=== PATIENT | female | born 1970 | race African-American/Black ===

== ENCOUNTER 2019-11-02 19:27 | Emergency (ER) | payer OTHER ==
[~2019-11-02] VITALS: Ht 162.6 cm; Wt 149.7 kg
[2019-11-02] MEDS ORDERED: MICROZIDE12.5 MG PO (19:40)
[2019-11-02 20:45] LABS: ABSOLUTE BASOPHILS 0.1 thou/uL (0.0-0.2); ABSOLUTE EOSINOPHILS 0.1 thou/uL (0.0-0.7); ABSOLUTE LYMPHOCYTES 1.6 thou/uL (0.8-5.3); ABSOLUTE MONOCYTES 0.6 thou/uL (0.0-1.2); ABSOLUTE NEUTROPHILS 7.5 thou/uL (1.6-8.1); BASOPHILS 0.8 %; EOSINOPHILS 0.8 %; HEMATOCRIT 40.4 % (37.0-47.0); HEMOGLOBIN 13.2 gm/dL (12.0-15.0); LYMPHOCYTES 15.8 %; MCH 28.6 pg (26.0-34.0); MCHC 32.7 g/dL (28.0-37.0); MCV 87.3 fL (80.0-100.0); MONOCYTES 5.9 %; MPV 11.2 fl. (7.2-11.1); NUCLEATED RBCS 0 /100WBC; PLATELET COUNT* 142 thou/uL (150-400); POLYS 76.7 %; RBC 4.63 mil/uL (4.20-5.00); RDW-CV 15.3 % (10.5-14.5); WBC 9.8 thou/uL (4.0-11.0)
[2019-11-02 20:55] LABS: URINE BLOOD NEGATIVE (Negative); URINE CLARITY CLEAR; URINE COLOR YELLOW; URINE GLUCOSE-RANDOM NEGATIVE (Negative); URINE KETONES 1+ (Negative); URINE LEUKOCYTES-REFLEX NEGATIVE (Negative); URINE NITRITE-REFLEX NEGATIVE (Negative); URINE PROTEIN 2+ (Negative); URINE SPECIFIC GRAVITY >= 1.030 (1.005-1.030); URINE UROBILINOGEN 0.2 E.U./dl (0.2-1.0)
[2019-11-02 21:00] LABS: ICTOTEST (BILI CONFIRMATORY) Negative (Negative); URINE BILIRUBIN 1+ (Negative)
[2019-11-02 21:09] LABS: CALCIUM 8.8 mg/dL (8.5-10.1); CREATININE 1.1 mg/dL (0.6-1.3); POTASSIUM 3.6 mmol/L (3.5-5.1)
[2019-11-02 21:14] LABS: ALBUMIN 3.7 g/dL (3.4-5.0); TOTAL BILIRUBIN 0.8 mg/dL (<0.1-1.0); TOTAL PROTEIN 7.7 g/dL (6.4-8.2)
[2019-11-02 21:43] LABS: FINE GRANULAR CASTS 0-3 Few /LPF (None Seen); HYALINE CASTS 4-10 Moderate /LPF (None Seen); SQUAMOUS 4-10 Moderate /LPF (0-3)
[2019-11-02 21:44] LABS: BACTERIA-REFLEX >30 Many /HPF (None Seen); CRYSTALS None Seen /LPF (None Seen); MUCUS 4-6 Moderate strn/LPF (None Seen); URINE RBC 0-2 Rare /HPF (0-2); URINE WBC-REFLEX 0-5 Rare /HPF (0-5)
[2019-11-02] MEDS ORDERED: TYLENOL WITH CO1 TA1 PO (22:26)
[2019-11-02] MEDS ORDERED: IBUPROFEN 800800 M1 PO (22:26)
[2019-11-02] MEDS ORDERED: MACROBID 100 M100 M2 PO (22:26)
[2019-11-02] MEDS ORDERED: ONDANSETRON HCL4 M2 PO (22:26)
[2019-11-02 22:50] LABS: GIANT PLATELETS FEW; PLATELET ESTIMATE DECREASED
[2019-11-02 22:51] VITALS: BP 164/89
== END 2019-11-02 22:52 | disposition home or self-care (01) ==
LOC: M.ERS 19:27
PROVIDERS: Nurse Practitioner Family
DX: K80.20 Calculus of gallbladder without cholecystitis without obstruction (principal); N39.0 Urinary tract infection, site not specified; E27.8 Other specified disorders of adrenal gland; I10 Essential (primary) hypertension; J45.909 Unspecified asthma, uncomplicated; G47.30 Sleep apnea, unspecified; Z90.710 Acquired absence of both cervix and uterus

== ENCOUNTER 2019-11-07 18:23 | Observation (INO) | payer OTHER ==
[~2019-11-07] VITALS: Ht 162.6 cm; Wt 158.8 kg
[~2019-11-07 18:23] MED LIST: IBUPROFEN 800800 M1 PO; MACROBID 100 M100 M2 PO; MICROZIDE12.5 MG PO; ONDANSETRON HCL4 M2 PO; TYLENOL WITH CO1 TA1 PO
[2019-11-07 18:39] VITALS: BP 168/83
[2019-11-07 18:49] LABS: URINE BILIRUBIN NEGATIVE (Negative); URINE BLOOD NEGATIVE (Negative); URINE CLARITY CLEAR; URINE COLOR YELLOW; URINE GLUCOSE-RANDOM NEGATIVE (Negative); URINE KETONES NEGATIVE (Negative); URINE LEUKOCYTES-REFLEX NEGATIVE (Negative); URINE NITRITE-REFLEX NEGATIVE (Negative); URINE PROTEIN NEGATIVE (Negative); URINE UROBILINOGEN 0.2 E.U./dl (0.2-1.0)
[2019-11-07 19:10] LABS: ABSOLUTE BASOPHILS 0.1 thou/uL (0.0-0.2); ABSOLUTE EOSINOPHILS 0.1 thou/uL (0.0-0.7); ABSOLUTE LYMPHOCYTES 1.4 thou/uL (0.8-5.3); ABSOLUTE MONOCYTES 0.7 thou/uL (0.0-1.2); ABSOLUTE NEUTROPHILS 9.1 thou/uL (1.6-8.1); BASOPHILS 0.7 %; EOSINOPHILS 0.5 %; HEMATOCRIT 38.3 % (37.0-47.0); HEMOGLOBIN 12.3 gm/dL (12.0-15.0); LYMPHOCYTES 12.7 %; MCH 28.3 pg (26.0-34.0); MCHC 32.2 g/dL (28.0-37.0); MCV 87.8 fL (80.0-100.0); NUCLEATED RBCS 0 /100WBC; POLYS 80.1 %; RBC 4.36 mil/uL (4.20-5.00); WBC 11.3 thou/uL (4.0-11.0)
[2019-11-07 19:18] LABS: CALCIUM 8.6 mg/dL (8.5-10.1); CREATININE 0.8 mg/dL (0.6-1.3); POTASSIUM 3.2 mmol/L (3.5-5.1)
[2019-11-07 19:19] LABS: APTT 25.7 Seconds (25.0-31.3); INFLUENZA A ANTIGEN Negative (Negative); INFLUENZA B ANTIGEN Negative (Negative); INR 1.1; PROTIME 11.2 Seconds (9.20-11.50)
[2019-11-07 19:22] LABS: ALBUMIN 3.8 g/dL (3.4-5.0); TOTAL BILIRUBIN 1.4 mg/dL (<0.1-1.0); TOTAL PROTEIN 7.5 g/dL (6.4-8.2)
[2019-11-07 19:29] LABS: PLATELET ESTIMATE ADEQUATE
[2019-11-07 19:31] LABS: PLATELET COUNT* 133 thou/uL (150-400)
[2019-11-07 19:32] LABS: LARGE PLATELETS FEW
[2019-11-07 22:58] VITALS: BP 174/100
[2019-11-07 23:00] VITALS: BP 118/111
[2019-11-07 23:05] VITALS: BP 194/116
[2019-11-07] MEDS ORDERED: QUINAPRIL-HCTZ1 EAC1 PO (23:37)
[2019-11-07] MEDS ORDERED: FLEXERIL PO (23:37)
[2019-11-08 04:00] VITALS: BP 154/102
--- NOTE | 2019-11-08 07:38 | NUR ---
RECEIVED REPORT FROM TRANSITIONAL NURSE AT 2245. PT ARRIVED TO UNIT VIA BED AT 2300. PT AAOX4, ORIENTED TO ROOM AND CALL LIGHT. SINGER BACK TENDER IN PLACE, SR. INITIAL BP'S ELEVATED. DR. GALAN NOTIFIED AND NEW ORDERS RECEIVED. SEE EMAR FOR DOCUMENTATION. PRN PAIN MEDICATION ADMINISTERED. CALL LIGHT WITHIN REACH.
[2019-11-08 08:00] VITALS: BP 164/99
--- NOTE | 2019-11-08 08:49 | EKG ---
[place] [address] ELECTROCARDIOGRAM REPORT Name: MIHAI PAGE Room: [address] ADM IN [facility].#: [id number] Admission: 11/07/19 Attend Phys: Aron Gonzalez Discharge: Date of : 72 Report #: [id number] THIS REPORT FOR: //name// [facility] ED Test Date: 2019-11-07 Test Time: 19:07:08 Pat Name: MIHAI PAGE Department: Room: [facility] Gender: [facility] Teacher: SHARON : 1970 Requested By: Jules Chaudhari Order Number: [id number] MD: Drew Basilio Measurements Intervals [place] Rate: 89 P: 32 NH: 191 QRS: -4 QRSD: 80 T: 92 QT: 377 QTc: 459 Interpretive Statements Sinus rhythm Probable left atrial enlargement Low voltage, precordial leads Borderline T wave abnormalities Compared to ECG 06/09/2008 07:43:18 Low QRS voltage now present T-wave abnormality still present Electronically Signed On 11-08-2019 8:49:17 CHEMISTRY FACULTY MEMBER by Drew Basilio [email or web address] <ELECTRONICALLY SIGNED> By: Drew Basilio MD, FAC 11/08/19 0849 [id number] 06 Drew Basilio MD, FAC /EPI
--- NOTE | 2019-11-08 10:23 | NUR ---
ASSUMED CARE OF PT AT 0730. PT RESTING IN BED. A&0X4, DENIES ANY PAIN OR SHORTNESS OF BREATH AT THIS TIME, PT GIVEN PAIN MEDICATION BY NOC SHIFT THIS AM. PT CURRENTLY ON HOME CPAP- SAT UPPER 90'S. ON 3L NC WHEN NOT ON CPAP. TRACING SR ON THE TAX AGENT. BLOOD PRESSURE BETTER THIS AM-160'S/90'S. PT UP AD GORDON IN ROOM. PT GOAL FOR TODAY IS PAIN MGMT, RESTART HOME MEDICATIONS AND TITRATE OXYGEN. AM ASSESSMENT CHARTED. MEDICATIONS PER JAN. PT REPOSITIONS SELF. HOURLY ROUNDING OBSERVED. BED IN LOW POSITION. CALL LIGHT WITHIN REACH. WILL CONTINUE PLAN OF CARE.
[2019-11-08 12:13] VITALS: BP 160/103
--- NOTE | 2019-11-08 12:38 | NUR ---
Pt is A&O. Resides at home alone. Independent and active. Pt has a home cpap, no other DME. No hx of HH or SNF. Goal is home at tx, following.
[2019-11-08 16:11] VITALS: BP 193/112
--- NOTE | 2019-11-08 17:43 | NUR ---
NO ACUTE CHANGES THROUGHOUT SHIFT. REFER TO CHARTING. PT HAD PELVIC ULTRASOUND THIS AFTERNOON-AWAITING RESULTS AT THIS TIME. PT HAD SHOWER THIS AFTERNOON-TOLERATED WELL. CONTINUES TO BE ON 3L NC SAT UPPER 90'S AND HOME CPAP WHEN SLEEPING. UNABLE TO TITRATE OXYGEN. CONTINUES TO TRACE SR ON THE MANAGER SUPPLY CHAIN. NOT PROGRESSING TOWARDS GOALS. MEDICATIONS PER JAN. PT REPOSITIONS SELF. HOURLY ROUNDING OBSERVED. BED IN LOW POSITION. CALL LIGHT WITHIN REACH. WILL CONTINUE PLAN OF CARE.
[2019-11-08 20:00] VITALS: BP 139/74
[2019-11-09] VITALS (7 sets, daily range): BP systolic 132–169; BP diastolic 75–110
[2019-11-09 02:10] LABS: GLYCOHEMOGLOBIN (HGB A1C) 7.8 % (4.8-5.6)
--- NOTE | 2019-11-09 13:03 | NUR ---
Nutrition: Pt admitted with cholelithiasis. H/o DM, HTN, noncompliant with DM meds. Labs: BG 155, A1c 7.8%, alb 3.8. CHO controlled diet. Appears at mild nutrition risk.
[2019-11-09] MEDS ORDERED: ONDANSETRON HCL4 M2 PO (16:18)
[2019-11-09] MEDS ORDERED: TYLENOL WITH CO1 TA1 PO (16:18)
[2019-11-09] MEDS ORDERED: NORCO 5-325 TA1 EAC1 PO (16:19)
[2019-11-09] MEDS ORDERED: ATIVAN0.5 M1 PO (16:34)
[2019-11-09] MEDS ORDERED: HYDROCHLOROTHIA25 M2 PO (16:41)
--- NOTE | 2019-11-09 17:36 | NUR ---
IV AND TELE DISCONTINUED. PT UNDERSTANDS ALL FOLLOW UP ORDERS. WILL DISCHARGE TO HOME.
--- NOTE | 2019-11-13 08:28 | CON ---
[address] [address] CONSULTATION Name: MIHAI PAGE Room: [address] Claudia#: [id number] Admission: 11/07/19 Attend Phys: Aron Gonzalez Discharge: 11/09/19 Date of : 72 Report #: [id number] THIS REPORT FOR: //name// CC: Abisai Carter DATE OF SERVICE: 11/09/2019 REASON FOR CONSULTATION: Ovarian mass and mediastinal mass. SUBJECTIVE: A 49-year-old -[place]er female, who has been evaluated yesterday after she has been seen at the Emergency Room because of right lower quadrant pain and right flank pain. The patient was supposed to follow up with her JAILOR after being seen at the Emergency Room on 11/02; however, she was not able to make it. The patient denies any alleviating or exacerbating factors. She had a CT scan of the abdomen, which showed interval increase in the left adnexal mass measuring 4.5 x 5.3, possibly hemorrhagic or complex cyst. There is also a solid enhancing mass at the right adrenal gland measuring 3.0. In addition to that, the patient had a CT angiogram, which showed no evidence of PE; however, there was a large mass in the superior mediastinum measuring 5.3 x 6.5 x 7.6. Primary thyroid or bulky lymphadenopathy is a consideration. There is also extensive mediastinal lymphadenopathy and enlarged paratracheal lymph nodes noted. REVIEW OF SYSTEMS: All systems were reviewed. It was negative except the above. The patient denies any B symptoms like night sweats or fevers. PAST MEDICAL HISTORY: Hypertension, asthma, sleep apnea, and fibroid removed. PAST SURGICAL HISTORY: Hysterectomy. MEDICATIONS: As per admission list. ALLERGIES: MACROBID. FAMILY HISTORY: No family history of malignancy. PHYSICAL EXAMINATION: VITAL SIGNS: Today, temperature 37.0, pulse 88, respirations 18, blood pressure is 146/79. GENERAL: The patient was lying in bed. She was not in acute distress. LUNGS: Clear to auscultations bilaterally. HEART: Regular rate and rhythm. S1, S2 within normal limits. ABDOMEN: Soft, nontender. ASSESSMENT AND PLAN: A 49-year-old -[place] [address] CONSULTATION Name: CAMILOMIHAI A Room: [address] Claudia#: [id number] Admission: 11/07/19 Attend Phys: Aron Gonzalez Discharge: 11/09/19 Date of : 72 Report #: [id number] because of large mediastinal mass and multiple lymphadenopathies. The etiology is suspicious of active malignancy. 1. We will arrange for a biopsy by EBUS as an outpatient. 2. We will obtain a germ cell tumor markers including LDH, beta hCG, and alpha-fetoprotein. 3. Adnexal mass, which could be related to ovarian malignancy. We will obtain a FOREST FIRE EQUIPMENT OPERATOR/ONC consultation as an outpatient with Dr. Chiu. <ELECTRONICALLY SIGNED> By: Cristiano Fraire MD 11/13/19 0828 1435 [id number] Fraire MD /nt
== END 2019-11-09 16:50 | disposition home or self-care (01) ==
LOC: M.ERS 18:23 → M.TBA-ER 21:57 → M.2W 21:57
PROVIDERS: Family Medicine; Nurse Practitioner Family; ADMIT Internal Medicine
DX: N83.9 Noninflammatory disorder of ovary, fallopian tube and broad ligament, unspecified (principal); R19.09 Other intra-abdominal and pelvic swelling, mass and lump; K80.20 Calculus of gallbladder without cholecystitis without obstruction; R09.02 Hypoxemia; R10.31 Right lower quadrant pain; E07.9 Disorder of thyroid, unspecified; N39.0 Urinary tract infection, site not specified; I10 Essential (primary) hypertension; J45.909 Unspecified asthma, uncomplicated; G47.30 Sleep apnea, unspecified; Z79.899 Other long term (current) drug therapy

== ENCOUNTER → 2019-11-23 | Outpatient (CLI) | payer OTHER ==
[~2019-11-23] MED LIST changes: +ATIVAN0.5 M1 PO; +FLEXERIL PO; +HYDROCHLOROTHIA25 M2 PO; +NORCO 5-325 TA1 EAC1 PO; +QUINAPRIL-HCTZ1 EAC1 PO
--- NOTE | 2019-11-29 17:51 | HEMONC ---
[place] [address] HEMATOLOGY ONCOLOGY NOTE Name: CAMILOMIHAI Vivien Room: [facility]#: [id number] Admission: 11/23/19 Attend Phys: Cristiano Fraire MD Discharge: Date of : 72 Report #: [id number] THIS REPORT FOR: //name// CC: Abisai rFaire DATE OF SERVICE: 11/23/2019 PRIMARY CARE PHYSICIAN: Abisai Odonnell MD SUBJECTIVE: This is a 49-year-old -[place] female who was evaluated earlier two weeks ago due to abnormal findings on her CT angiogram which showed large mass at the superior mediastinum, left of the trachea, which is deviated to the right mass measuring 5.3 x 6.5 x 7.6 cm with bulky lymphadenopathy. There is also extensive mediastinal lymphadenopathy and large paratracheal. In addition to that, there is a solid right adrenal mass that could be consistent with metastatic disease. The patient stated that in 2012 she had a biopsy at [facility] and she was told it was negative. However, two weeks ago, she had a biopsy done at [facility] and the biopsy results were not available. I discussed the case with Dr. Russell Dallas, Interventional Pulmonary, at [facility] to obtain a tissue diagnosis from the mediastinal lymph nodes by EBUS; however, recommended ENT due to superior mediastinal mass. I made a referral to ENT for further evaluation. During her hospital stay, I obtained a CA-125 which came back within normal range of 20.5. Alpha fetoprotein and beta hCG and LDH came back all within normal range. Today, the patient was evaluated as a followup in the clinic. Her main concern was right hip/pelvic pain which responds to NSAIDs. REVIEW OF SYSTEMS: All systems were reviewed. It was negative except the above. PAST MEDICAL, SOCIAL, AND FAMILY HISTORY: Unchanged from last visit. MEDICATIONS: List has been reviewed. PHYSICAL EXAMINATION: VITAL SIGNS: Today, blood pressure is 137/89, pulse is 87, respirations 24, temperature is 98.1, and oxygen saturations 95% on room air. GENERAL: The patient was sitting in a chair. She was not in any respiratory distress. LUNGS: Decreased breathing sounds bilaterally; however, there was no wheezing [place] [address] HEMATOLOGY ONCOLOGY NOTE Name: CAMILOMIHAI A Room: [facility]#: [id number] Admission: 11/23/19 Attend Phys: Cristiano Fraire MD Discharge: Date of : 72 Report #: [id number] HEART: Regular rate and rhythm. S1 and S2 within normal limits. ABDOMEN: Soft, nontender, and nondistended. Bowel sounds positive. LABORATORY DATA: Labs have been reviewed. ASSESSMENT AND PLAN: This is a 49-year-old -[place] female who has been evaluated due to the followin. A 7.6 cm mass at the superior mediastinum with extensive lymphadenopathy. This raises the suspicion of metastatic disease. Urgent referral to ENT for biopsy or debulking surgery. We will obtain biopsy results from [facility]. I am not sure whether this is a thyroid biopsy, FNA, or biopsy of that mass. 2. Adnexal mass. The patient had already an appointment with Dr. Fierro Decatizer-Onc for further evaluation. <ELECTRONICALLY SIGNED> By: Cristiano Fraire MD 11/29/19 1751 0939 [id number] Fraire MD /nt
== END ==
LOC: M.RTH 09:00
DX: R59.1 Generalized enlarged lymph nodes (principal); R19.09 Other intra-abdominal and pelvic swelling, mass and lump

== ENCOUNTER → 2020-08-28 | Outpatient (CLI) | payer OTHER | LOC: M.RAD 16:18 | PROVIDERS: ATTEND Family Medicine | DX: Z12.31 Encounter for screening mammogram for malignant neoplasm of breast (principal) ==

== ENCOUNTER 2020-12-17 14:46 | Inpatient (IN) | payer OTHER ==
[~2020-12-17] VITALS: Ht 152.4 cm; Wt 154.8 kg
[2020-12-17] VITALS (19 sets, daily range): BP systolic 66–183; BP diastolic 00–112
--- NOTE | ~2020-12-17 | EEG ---
[facility] [address] [place] [address] EEG STUDY REPORT Name: MIHAI PAGE Room: [address] IN M.R.#: [id number] Admission: 12/17/20 Attend Phys: Loren Sales MD Discharge: Date of : 72 Report #: [id number] THIS REPORT FOR: cc: Abisai Odonnell MD, Bruce D. MD ~ Thomas Stone MD This patient is being evaluated for any cortical activity. EEG was done starting at 7 mV, but sensitivity was changed to 2 mV. No well-defined cortical activity was noticed. A lot of artifact was present. Photic stimulation was unremarkable. IMPRESSION AND PLAN: This patient's EEG does not demonstrate any cortical activity. However, a lot of artifact is present and it is desirable to confirm that finding with some alternate ancillary tests. Thank you very much for this referral. By: 2103 [id number] Stone MD /nt
--- NOTE | 2020-12-17 15:29 | NUR ---
PT EMERGENCY CONTACT SEVERO TREVINO [phone]
[2020-12-17 16:29] LABS: ABSOLUTE EOSINOPHILS 0.1 thou/uL (0.0-0.7); ABSOLUTE LYMPHOCYTES 2.4 thou/uL (0.8-5.3); ABSOLUTE MONOCYTES 0.4 thou/uL (0.0-1.2); ABSOLUTE NEUTROPHILS 8.6 thou/uL (1.6-8.1); BASOPHILS 0.3 %; EOSINOPHILS 0.5 %; HEMATOCRIT 39.2 % (37.0-47.0); HEMOGLOBIN 11.5 gm/dL (12.0-15.0); LYMPHOCYTES 20.9 %; MCH 27.7 pg (26.0-34.0); MCHC 29.3 g/dL (28.0-37.0); MCV 94.6 fL (80.0-100.0); MONOCYTES 3.5 %; MPV 11.1 fl. (7.2-11.1); NUCLEATED RBCS 0 /100WBC; PLATELET COUNT* 122 thou/uL (150-400); POLYS 74.8 %; RBC 4.15 mil/uL (4.20-5.00); RDW-CV 15.6 % (10.5-14.5); WBC 11.5 thou/uL (4.0-11.0)
[2020-12-17 16:41] LABS: BE -17.8 mmol/L (-2 to +3)
[2020-12-17 16:42] LABS: APTT 30.6 Seconds (25.0-31.3); INR 1.2; PROTIME 12.3 Seconds (9.20-11.50)
[2020-12-17 16:44] LABS: CALCIUM 7.9 mg/dL (8.5-10.1); CREATININE 1.6 mg/dL (0.6-1.3); POTASSIUM 4.7 mmol/L (3.5-5.1)
[2020-12-17 16:48] LABS: PCO2 75.5 mmHg (35.0-45.0); pH 6.927 (7.340-7.450)
[2020-12-17 16:51] LABS: ALBUMIN 2.6 g/dL (3.4-5.0); MAGNESIUM 2.3 mg/dL (1.8-2.4); TOTAL BILIRUBIN 0.6 mg/dL (<0.1-1.0); TOTAL PROTEIN 5.8 g/dL (6.4-8.2)
--- NOTE | 2020-12-17 18:10 | NUR ---
REPORT GIVEN TO ROYAL PLEITEZ AT 0605. TAKEN TO ICU BED 5 WITH RESPIRATORY AT BEDSIDE.
--- NOTE | 2020-12-17 18:27 | NUR ---
BEDSIDE REPORT IN ED, PT ON PRESSORS/VENTED. NO SEDATION, PUPILS FIXED AT 5MM. PT TRANSFERRED TO ICU WITH CONTINUED EEG MONITORING. CODE ICE INITIATED AT 1804, SEE VITALS TREND. PHARMACY TO BRING BAG OF INSULIN FOR DKA PROTOCOL, AWAITING MED FOR INITIATION. REPORT HAND OFF GIVEN TO MARIAH.
--- NOTE | 2020-12-17 22:00 | NUR ---
[facility]N NOTIFIED. REFERRAL # [id number]. PATIENT A CANDIDATE AT THIS TIME. THEY NEED UPDATED WITH CHANGE IN PATIENT PLAN OF CARE (IE FAMILY DISCUSSING WITHDRAWAL OF SUPPORT), PHYSICIAN WANTING TO DO BRAIN TESTING OR CHANGE IN STATUS. THEY'LL CALL DAILY. THEY ALSO NEED TO KNOW ABOUT HX OF MASSES (ARE THEY CANCEROUS), HIV AND HEPATITIS.
[2020-12-17 22:27] LABS: ALBUMIN 3.3 g/dL (3.4-5.0); CALCIUM 8.4 mg/dL (8.5-10.1); CREATININE 1.8 mg/dL (0.6-1.3); MAGNESIUM 2.2 mg/dL (1.8-2.4); PHOSPHORUS* 5.1 mg/dL (2.5-4.9)
[2020-12-17 22:29] LABS: POTASSIUM 3.6 mmol/L (3.5-5.1)
--- NOTE | 2020-12-17 23:30 | NUR ---
UPDATED SISTER ON STATUS OF PATIENT . CONSENT OBTAINED FOR ARTERIAL LINE. SISTER DENIED HX OF CANCER. STATED THAT THYROID MASS (THYROID REMOVED) AND CHEST MASS REMOVED AND WERE NOT CANCEROUS. SISTER DENIES HX OF HIV, IV DRUG USE OR HEPATITIS. [facility] UPDATED ON STATUS.
[2020-12-17 23:51] LABS: BE -9.1 mmol/L (-2 to +3)
[2020-12-17 23:56] LABS: pH 7.141 (7.340-7.450)
[2020-12-17 23:57] LABS: PO2 59.7 mmHg (75.0-100.0)
[2020-12-18] VITALS (64 sets, daily range): BP systolic 103–186; BP diastolic 64–127
[2020-12-18 00:30] LABS: CALCIUM 8.5 mg/dL (8.5-10.1); CK-MB MASS 66.4 ng/mL (<0.5-3.6); CREATININE 1.8 mg/dL (0.6-1.3); PHOSPHORUS* 4.3 mg/dL (2.5-4.9); POTASSIUM 3.2 mmol/L (3.5-5.1)
[2020-12-18 00:31] LABS: HEMATOCRIT 47.2 % (37.0-47.0); MCH 27.8 pg (26.0-34.0); MCHC 31.2 g/dL (28.0-37.0); MPV 10.5 fl. (7.2-11.1); NUCLEATED RBCS 0 /100WBC; PLATELET COUNT* 118 thou/uL (150-400); RBC 5.31 mil/uL (4.20-5.00); RDW-CV 15.1 % (10.5-14.5); WBC 25.7 thou/uL (4.0-11.0)
[2020-12-18 00:34] LABS: HEMOGLOBIN 14.7 gm/dL (12.0-15.0); MCV 88.9 fL (80.0-100.0)
[2020-12-18 00:37] LABS: FIBRINOGEN 241 mg/dL (200-340); INR 1.4; PROTIME 14.6 Seconds (9.20-11.50)
[2020-12-18 00:42] LABS: TROPONIN-I LEVEL 3.91 ng/mL (<0.06)
[2020-12-18 00:43] LABS: APTT 99.5 Seconds (25.0-31.3)
[2020-12-18 01:11] LABS: ABSOLUTE LYMPHOCYTES 3.3 thou/uL (0.8-5.3); ABSOLUTE MONOCYTES 0.5 thou/uL (0.0-1.2); ABSOLUTE NEUTROPHILS 21.8 thou/uL (1.6-8.1)
[2020-12-18 01:12] LABS: LARGE PLATELETS OCCASIONAL; PLATELET ESTIMATE ADEQUATE
[2020-12-18 02:36] LABS: ABSOLUTE BASOPHILS 0.1 thou/uL (0.0-0.2); ABSOLUTE LYMPHOCYTES 0.9 thou/uL (0.8-5.3); ABSOLUTE MONOCYTES 1.2 thou/uL (0.0-1.2); BASOPHILS 0.2 %; EOSINOPHILS 0.1 %; HEMATOCRIT 47.3 % (37.0-47.0); HEMOGLOBIN 14.5 gm/dL (12.0-15.0); LYMPHOCYTES 3.4 %; MCH 27.3 pg (26.0-34.0); MCHC 30.7 g/dL (28.0-37.0); MONOCYTES 4.6 %; MPV 10.8 fl. (7.2-11.1); NUCLEATED RBCS 0 /100WBC; PLATELET COUNT* 125 thou/uL (150-400); POLYS 91.7 %; RBC 5.32 mil/uL (4.20-5.00); RDW-CV 15.4 % (10.5-14.5); WBC 26.2 thou/uL (4.0-11.0)
[2020-12-18 02:50] LABS: ALBUMIN 3.3 g/dL (3.4-5.0); CALCIUM 7.9 mg/dL (8.5-10.1); CREATININE 1.8 mg/dL (0.6-1.3); PHOSPHORUS* 2.9 mg/dL (2.5-4.9); POTASSIUM 3.3 mmol/L (3.5-5.1)
--- NOTE | 2020-12-18 02:56 | NUR ---
1930 PT REMAINS ON ARTIC SUN AND COOLING. NO ACUTE DISTRESS AT THIS TIME. REMAINS ON VENTILATOR .
[2020-12-18 02:57] LABS: FIBRINOGEN 275 mg/dL (200-340); INR 1.4; PROTIME 14.3 Seconds (9.20-11.50)
--- NOTE | 2020-12-18 02:59 | NUR ---
2030 PT HAD EXPLOSIVE BOWEL MOVEMENT THAT WENT FROM MID BACK TO END OF BED AND INTO FLOOR. STOOL IS SEMI LIQUID. PT CLEANED AND LINENS CHANGED. FLEXISEAL INSERTED.
--- NOTE | 2020-12-18 03:01 | NUR ---
2215 STILL UNABLE TO OBTAIN A BLOOD PRESSURE, ATTEMPTED ON ALL LIMBS WITH ELECTRONIC CUFF AND TRIED MANUAL CUFF ON BOTH UPPER EXTREMITIES 2220 DR HERRERA IN ROUTE TO PLACE ART LINE 2225 DOPPLER BLOOD PRESSURE AT 66 ON RIGHT UPPER EXT 2234 BLOOD PRESSURE 108 PALPATED ON RIGHT UPPER EXTREMITY 2245 BLOOD PRESSURE 112 PALPATED ON RIGHT UPPER EXT 2355 BLOOD PRESSURE 150 PALPATED ON RIGHT UPPER EXT 0005 DR CACERES HERE AND INSERTED A 20GA CATHALON RIGHT RADIAL. CONNECTED TO ART LINE. ART LINE ZEROED.
[2020-12-18 03:04] LABS: ALBUMIN 3.3 g/dL (3.4-5.0); CK-MB MASS 69.3 ng/mL (<0.5-3.6); CREATININE 1.7 mg/dL (0.6-1.3); POTASSIUM 3.3 mmol/L (3.5-5.1); TOTAL BILIRUBIN 0.8 mg/dL (<0.1-1.0); TOTAL PROTEIN 7.2 g/dL (6.4-8.2)
--- NOTE | 2020-12-18 03:07 | NUR ---
BLOOD CULTURE OBTAINED AT 1945 AND SENT TO LAB BLOOD DRAW AT 2200 AND SENT TO LAB BLOOD DRAW AT 2305 AND SENTTO LAB BLOOD DRAW AT 0025 REDRAW PER LABS REQUEST BLOOD DRAW AT 0220 AND SENT TO LAB
[2020-12-18 03:10] LABS: TROPONIN-I LEVEL 4.45 ng/mL (<0.06)
[2020-12-18 05:08] LABS: URINE BILIRUBIN NEGATIVE (Negative); URINE BLOOD 3+ (Negative); URINE CLARITY CLEAR; URINE COLOR YELLOW; URINE GLUCOSE-RANDOM TRACE (Negative); URINE KETONES NEGATIVE (Negative); URINE LEUKOCYTES-REFLEX NEGATIVE (Negative); URINE NITRITE-REFLEX NEGATIVE (Negative); URINE PROTEIN 2+ (Negative); URINE SPECIFIC GRAVITY <= 1.005 (1.005-1.030); URINE UROBILINOGEN 0.2 E.U./dl (0.2-1.0)
[2020-12-18 05:16] LABS: AMP/METHAMP Negative (Negative); BARBITURATES Negative (Negative); BENZODIAZEPINES Negative (Negative); COCAINE Negative (Negative); METHADONE Negative (Negative); OPIATES Negative (Negative); PCP Negative (Negative); THC Negative (Negative)
[2020-12-18 05:27] LABS: BE -9.7 mmol/L (-2 to +3); PCO2 46.2 mmHg (35.0-45.0); PO2 81.1 mmHg (75.0-100.0)
[2020-12-18 05:29] LABS: pH 7.211 (7.340-7.450)
[2020-12-18 05:42] LABS: BACTERIA-REFLEX 1-9 Few /HPF (None Seen); CASTS None Seen /LPF (None Seen); CRYSTALS None Seen /LPF (None Seen); MUCUS 0-3 Light strn/LPF (None Seen); SQUAMOUS 0-3 Few /LPF (0-3); URINE RBC 3-10 Few /HPF (0-2); URINE WBC-REFLEX 0-5 Rare /HPF (0-5)
[2020-12-18 07:35] LABS: CALCIUM 7.9 mg/dL (8.5-10.1); CREATININE 2.2 mg/dL (0.6-1.3); MAGNESIUM 1.9 mg/dL (1.8-2.4); PHOSPHORUS* 3.2 mg/dL (2.5-4.9); POTASSIUM 3.2 mmol/L (3.5-5.1); TOTAL BILIRUBIN 0.7 mg/dL (<0.1-1.0); TOTAL PROTEIN 6.9 g/dL (6.4-8.2)
[2020-12-18 07:52] LABS: TROPONIN-I LEVEL 6.47 ng/mL (<0.06)
--- NOTE | 2020-12-18 13:26 | NUR ---
DKA PROTOCOL DISCONTINUED PER BUT INSULIN DRIP CONTINUED PER CONTINUOUS INSULIN INFUSION PROTOCOL. POTASSIUM BEING REPLACED PER ELECTROLYTE PROTOCOL.
--- NOTE | 2020-12-18 13:52 | NUR ---
WOUND NURSE: PATIENT IS ON CODE ICE, DOES NOT HAVE SKIN BREAKDOWN, IS MORBIDLY OBESE, IS UNCONSCIOUS. PERPRASANTH, PATIENT'S NURSE TODAY -- SHE RECOMMENDS REVISITING PATIENT TOMORROW AND EVALUATE NEED FOR SPECIALTY BED THEN. I WILL RESCHEDULE PATIENT FOR TOMORROW A RESULT.
--- NOTE | 2020-12-18 14:38 | NUR ---
ICU rounds: Cold ice. Low probability of recovery. CM left VM for Pt's emergency contact, awaiting call back.
[2020-12-18 15:10] LABS: BE -4.5 mmol/L (-2 to +3); PCO2 38.9 mmHg (35.0-45.0); PO2 62.6 mmHg (75.0-100.0); pH 7.344 (7.340-7.450)
[2020-12-18 16:25] LABS: HEMATOCRIT 43.8 % (37.0-47.0); HEMOGLOBIN 13.7 gm/dL (12.0-15.0); MCH 27.7 pg (26.0-34.0); MCHC 31.3 g/dL (28.0-37.0); MCV 88.6 fL (80.0-100.0); MPV 10.8 fl. (7.2-11.1); NUCLEATED RBCS 0 /100WBC; PLATELET COUNT* 101 thou/uL (150-400); RBC 4.94 mil/uL (4.20-5.00); RDW-CV 15.4 % (10.5-14.5); WBC 18.2 thou/uL (4.0-11.0)
[2020-12-18 16:38] LABS: APTT 46.5 Seconds (25.0-31.3); INR 1.2; PROTIME 12.9 Seconds (9.20-11.50)
--- NOTE | 2020-12-18 16:40 | 2DMMODE ---
[place] [address] 2 D/M-MODE ECHOCARDIOGRAM Name: MIHAI PAGE Room: [address] IN [facility]#: [id number] Admission: 12/17/20 Attend Phys: Loren Sales, Discharge: Date of : 72 Date of Service: 12/18/20 [facility] Report #: [id number] THIS REPORT FOR: cc: Abisai Odonnell MD, Bruce D. MD Holkins,Marky Davila MD [facility] ~ APPROVED REPORT Study performed: 12/18/2020 09:42:33 EXAM: Comprehensive 2D, Doppler, and color-flow Echocardiogram Patient Location: In-Patient Room #: 005 Status: routine BSA: 2.22 HR: 63 bpm BP: 142/105 mmHg Rhythm: NSR Other Information Study Quality: Good Indications Elevated Troponin 2D Dimensions IVSd: 12.44 (7-11mm) LVOT Diam: 20.05 (18-24mm) LVDd: 40.91 mm PWd: 11.45 (7-11mm) Ascending Ao: 28.29 (22-36mm) LVDs: 33.55 (25-40mm) Aortic Root: 30.68 mm Volumes Left Atrial Volume (Systole) LA ESV Index: 22.30 mL/m2 Aortic Valve AoV Peak Mohit.: 0.95 m/s AO Peak Gr.: 3.64 mmHg LVOT Max P.00 mmHg AO Mean Gr.: 2.25 mmHg LVOT Mean P.93 mmHg LVOT Max V: 0.71 m/s AO V2 VTI: 19.91 cm LVOT Mean V: 0.44 m/s ZOE (VTI): 2.23 cm2 LVOT V1 VTI: 14.05 [place] [address] 2 D/M-MODE ECHOCARDIOGRAM Name: MIHAI PAGE Room: [address] IN [facility]#: [id number] Admission: 12/17/20 Attend Phys: Loren Sales, Discharge: Date of : 72 Date of Service: 12/18/20 [facility] Report #: [id number] Mitral Valve E/A Ratio: 1.29 MV Decel. Time: 226.12 ms MV E Max Mohit.: 0.50 m/s MV PHT: 65.57 ms MVA (PHT): 3.35 cm2 TDI E/Lateral E': 12.50 E/Medial E': 12.50 Medial E' Mohit.: 0.04 m/s Lateral E' Mohit.: 0.04 m/s Pulmonary Valve PV Peak Mohit.: 0.59 m/s PV Peak Gr.: 1.38 mmHg Left Ventricle The left ventricle is normal size. There is mild global hypokinesis of the left ventricle. Borderline concentric left ventricular hypertrophy. Left ventricular systolic function is mildly decreased. LVEF is 45%. Right Ventricle The right ventricle is normal size. The right ventricular systolic function is normal. Atria The left atrium size is normal. The right atrium size is normal. Aortic Valve The aortic valve is normal in structure. No aortic regurgitation is present. There is no aortic valvular stenosis. Mitral Valve The mitral valve is normal in structure. There is no mitral valve regurgitation noted. No evidence of mitral valve stenosis. Tricuspid Valve The tricuspid valve is normal in structure. There is no tricuspid valve regurgitation noted. Pulmonic Valve The pulmonary valve is normal in structure. There is no pulmonic valvular regurgitation[place] [address] 2 D/M-MODE ECHOCARDIOGRAM Name: MIHAI PAGE Room: [address] IN [facility]#: [id number] Admission: 12/17/20 Attend Phys: Loren Sales, Discharge: Date of : 72 Date of Service: 12/18/20 [facility] Report #: [id number] The aortic root is normal in size. IVC is normal in size and collapses >50% with inspiration. Pericardium There is no pericardial effusion. <Conclusion> The left ventricle is normal size. Borderline concentric left ventricular hypertrophy. Left ventricular systolic function is mildly decreased. LVEF is 45%. The right ventricle is normal size. The left atrium size is normal. The aortic valve is normal in structure. The mitral valve is normal in structure. The tricuspid valve is normal in structure. IVC is normal in size and collapses >50% with inspiration. There is no pericardial effusion. There is mild global hypokinesis of the left ventricle. <ELECTRONICALLY SIGNED> By: Marky Campoverde MD, FACC 12/18/20 1640 1640 1640 Marky Campoverde MD, FACC /INF
[2020-12-18 16:51] LABS: CALCIUM 7.8 mg/dL (8.5-10.1); CK-MB MASS 89.3 ng/mL (<0.5-3.6); CREATININE 2.4 mg/dL (0.6-1.3); PHOSPHORUS* 2.6 mg/dL (2.5-4.9); POTASSIUM 4.3 mmol/L (3.5-5.1)
[2020-12-18 16:53] LABS: TROPONIN-I LEVEL 4.17 ng/mL (<0.06)
[2020-12-18 16:59] LABS: ABSOLUTE LYMPHOCYTES 0.5 thou/uL (0.8-5.3); ABSOLUTE MONOCYTES 0.4 thou/uL (0.0-1.2); ABSOLUTE NEUTROPHILS 17.3 thou/uL (1.6-8.1); PLATELET ESTIMATE DECREASED
--- NOTE | 2020-12-18 17:08 | EKG ---
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[place] : 1970 Requested By: Fransisco Terry Order Number: [id number] MD: Marky Campoverde Measurements Intervals [place] Rate: 112 P: [place]: QRS: 1 QRSD: 142 T: 33 QT: 462 QTc: 631 Interpretive Statements Sinus tachycardia Right bundle branch block Borderline ST depression, lateral leads Baseline wander in lead(s) I,II,III,aVR,aVL,aVF,V1,V2,V3,V4,V5,V6 Compared to ECG 11/07/2019 19:07:08 Sinus rate has increased Right bundle-branch block now present ST (T wave) deviation now present Electronically Signed On 12-18-2020 17:07:56 PROFESSIONAL SERVICES CONSULTANT by Marky Campoverde [email or web address] <ELECTRONICALLY SIGNED> By: Marky Campoverde MD, [facility] 12/18/20 1707 1507 1507 Marky Campoverde MD, [facility] /EPI
--- NOTE | 2020-12-18 18:21 | NUR ---
VENT SUPPORT CONTD. SETTINGS CHANGED PER ORDERS, FIO2 DOWN TO 70%. LEVOPHED TITRATED DOWN TO 3 MCG/MIN THIS SHIFT. HEPARIN DRIP AND INSULIN DRIP PER PROTOCOL. POTASSIUM REPLACED AND CORRECTED. DW WITH BICARB GTT AT 50 MLS/HR. SISTER AND MOTHER VISITED SHORTLY THIS AFTERNOON. REWARMING STARTED AT 1810.
--- NOTE | 2020-12-18 18:34 | CON ---
[address] [address] CONSULTATION Name: MIHAI PAGE Room: [address] IN [facility].#: [id number] Admission: 12/17/20 Attend Phys: Loren Sales MD Discharge: Date of : 72 Report #: [id number] THIS REPORT FOR: cc: Abisai Odonnell MD, Bruce D. MD ~ Dominik Sofia MD DATE OF SERVICE: 12/18/2020 Consult has been a requested by Dr. Sales. INDICATION FOR CONSULTATION: Acute hypoxemic respiratory failure/ventilator management. HISTORY OF PRESENT ILLNESS: A 50-year-old female who has a history of morbid obesity, body mass index is 67.1. She also carries a diagnosis of bronchial asthma. The patient does use a CPAP at home as well as oxygen in line at night. She also uses oxygen during ambulation. The patient has previously been evaluated for a mediastinal mass as well and had thyroid surgery last year at [facility]. The patient is now admitted with sudden shortness of breath. The patient was at [facility] according to her sister when she suddenly developed acute shortness of breath and was brought to the Emergency Room at this hospital via a private car. Upon arrival, the patient was found to be in cardiac arrest. The patient since then was endotracheally intubated and is currently on the ventilator. The patient is oxygenating adequately as well as ventilating adequately. She does still have a significant metabolic acidosis though. The patient, however, is on high-flow oxygen. She is bronchospastic. The patient is on the ventilator and therefore is unable to provide a further history or review of systems. PAST MEDICAL HISTORY: Morbid obesity, body mass index 67, obstructive sleep apnea, long-term oxygen use while asleep and during ambulation. Bronchial asthma, mediastinal mass, thyroid surgery. The patient's baseline creatinine from 2 years ago is 0.8. I do not have a more recent creatinine available. Hysterectomy for fibroids in 2016, diabetes and hypertension. SOCIAL HISTORY: There is a reported history of alcohol use, which is not known to me if this use is excessive or not. There is no known history of smoking or illegal drug use. FAMILY HISTORY: No pertinent family history known at this time. CURRENT MEDICATIONS: [place] [address] CONSULTATION Name: CAMILOMIHAI Vivien Room: [address]#: [id number] Admission: 12/17/20 Attend Phys: Loren Sales MD Discharge: Date of : 72 Report #: [id number] HOME MEDICATIONS: List also in [facility] reviewed. PHYSICAL EXAMINATION: GENERAL: The patient was unresponsive and not on sedation at the time of my evaluation, she is on code ICE with a temperature of 32.9. VITAL SIGNS: Pulse 64, blood pressure 151/98. She was on 70% FiO2. Ventilator settings are reviewed and documented tidal volume 550, AC rate of 14 and 70% FiO2, 7 of PEEP. She was saturating 97%. HEENT: Head is normocephalic and atraumatic. There is an endotracheal tube in good position. NECK: Does not show raised JVP symmetry mass or lymph nodes. CHEST: Symmetrical expansion on inspection and palpation. On auscultation, there are significant inspiratory as well as more expiratory wheezes bilaterally. HEART: Regular, no murmur. ABDOMEN: Mildly distended, nontender. EXTREMITIES: Lower extremities show edema, which is left greater than right. There is no calf tenderness. NEUROLOGICAL: The patient did not respond to painful stimuli at the time of my evaluation. LABORATORY DATA: The patient's chest x-rays, which do show extensive bilateral infiltrates consistent with acute pulmonary edema in [facility] reviewed. CT head in [facility] reviewed. CT chest films as well as report are reviewed. The patient's lab work is in [facility] and is reviewed. Arterial blood gases in [facility] reviewed. COVID-19 antigen was negative. ASSESSMENT AND PLAN: 1. Cardiac arrest/anoxic encephalopathy, due to the patient's sudden presentation it appears the patient had a cardiac event. Unfortunately, there appears to be significant anoxic brain injury. Neurology service is on the case. The patient is on code ICE. 2. Acute hypoxemic/hypercarbic respiratory failure. I adjusted the ventilator. Repeat labs are ordered. She does have a metabolic acidosis as well. We will defer this to the Nephrology service. 3. Bronchial asthma exacerbation/bronchospasm. Agree with increasing steroids. I also increased her nebulized bronchodilators if needed as a result, then give her more insulin. 4. Pulmonary infiltrates, primarily this appears to be secondary to acute pulmonary edema. Considering the severity of her illness I did broaden her ceftriaxone to cefepime. Note that the patient also is on vancomycin for a positive blood culture. 5. Acute renal failure. Note that the patient's creatinine from [address] [place] [address] CONSULTATION Name: MIHAI PAGE Room: [address] IN .R.#: [id number] Admission: 12/17/20 Attend Phys: Loren Sales MD Discharge: Date of : 72 Report #: [id number] was 0.8 and I do not have a more recent creatinine before this admission available. She also has a metabolic acidosis. The Nephrology service is managing. 6. Edema of lower extremities. This is asymmetrical and therefore, I will do venous Dopplers. 7. Morbid obesity with obstructive sleep apnea. See discussion as above. 8. Elevated troponin I/possible myocardial infarction. Cardiology service is on the case. We will await echo. 9. Gastrointestinal prophylaxis. The patient is on Pepcid. 10. Previous history of superior mediastinal mass. This is not clearly visualized on the new CT. I can certainly discuss with radiologist and compare with the patient's previous CT, however other issues take priority at this time. The patient is critically ill at this time. Total time spent providing critical care to this patient today is 42 minutes. <ELECTRONICALLY SIGNED> By: Dominik Sofia MD 12/18/20 1834 1320 1413Achuck Sofia MD /nt
[2020-12-18 20:37] LABS: BE -4.7 mmol/L (-2 to +3); PCO2 33.6 mmHg (35.0-45.0); PO2 69.4 mmHg (75.0-100.0); pH 7.381 (7.340-7.450)
[2020-12-19] VITALS (64 sets, daily range): BP systolic 97–140; BP diastolic 40–94
[2020-12-19 05:34] LABS: BE -5.8 mmol/L (-2 to +3); PCO2 30.9 mmHg (35.0-45.0); PO2 84.5 mmHg (75.0-100.0); pH 7.385 (7.340-7.450)
[2020-12-19 07:04] LABS: ABSOLUTE LYMPHOCYTES 0.6 thou/uL (0.8-5.3); ABSOLUTE MONOCYTES 0.6 thou/uL (0.0-1.2); ABSOLUTE NEUTROPHILS 19.4 thou/uL (1.6-8.1); BASOPHILS 0.1 %; HEMATOCRIT 39.5 % (37.0-47.0); HEMOGLOBIN 12.5 gm/dL (12.0-15.0); LYMPHOCYTES 2.7 %; MCH 27.5 pg (26.0-34.0); MCHC 31.6 g/dL (28.0-37.0); MCV 86.8 fL (80.0-100.0); MPV 10.8 fl. (7.2-11.1); NUCLEATED RBCS 0 /100WBC; PLATELET COUNT* 90 thou/uL (150-400); POLYS 94.2 %; RBC 4.55 mil/uL (4.20-5.00); RDW-CV 15.8 % (10.5-14.5); WBC 20.6 thou/uL (4.0-11.0)
[2020-12-19 07:33] LABS: ALBUMIN 2.7 g/dL (3.4-5.0); CALCIUM 7.6 mg/dL (8.5-10.1); CREATININE 3.1 mg/dL (0.6-1.3); MAGNESIUM 1.8 mg/dL (1.8-2.4); TOTAL BILIRUBIN 0.5 mg/dL (<0.1-1.0); TOTAL PROTEIN 6.5 g/dL (6.4-8.2)
[2020-12-19 07:35] LABS: TROPONIN-I LEVEL 4.24 ng/mL (<0.06)
[2020-12-19 14:09] LABS: HEPATITIS B SURFACE AG Negative (Negative)
--- NOTE | 2020-12-19 14:53 | NUR ---
ICU rounds: Pt having an EEG now, mother and sister aware of prognosis. Neuro following. Pt to have a brain flow study tomorrow. MTN following.
--- NOTE | 2020-12-19 16:26 | NUR ---
WOUND NURSE: REVISITED PATIENT AND HER NURSE, PRASANTH REGARDING POTENTIAL NEED FOR A SPECIALTY BED, AND PRASANTH REPORTS NOT AT THIS TIME. EXPLAINED TO LET ME KNOW IF THIS CHANGES AND ONE IS LATER NEEDED.
[2020-12-19 18:48] LABS: ABSOLUTE LYMPHOCYTES 0.6 thou/uL (0.8-5.3); ABSOLUTE MONOCYTES 0.7 thou/uL (0.0-1.2); BASOPHILS 0.1 %; HEMATOCRIT 36.4 % (37.0-47.0); HEMOGLOBIN 11.4 gm/dL (12.0-15.0); LYMPHOCYTES 3.5 %; MCH 27.5 pg (26.0-34.0); MCHC 31.2 g/dL (28.0-37.0); MCV 88.1 fL (80.0-100.0); MONOCYTES 3.7 %; MPV 11.9 fl. (7.2-11.1); NUCLEATED RBCS 0 /100WBC; PLATELET COUNT* 78 thou/uL (150-400); POLYS 92.7 %; RBC 4.13 mil/uL (4.20-5.00); RDW-CV 15.6 % (10.5-14.5); WBC 18.4 thou/uL (4.0-11.0)
[2020-12-19 19:04] LABS: APTT 25.7 Seconds (25.0-31.3); INR 1.1; PROTIME 11.9 Seconds (9.20-11.50)
[2020-12-19 19:14] LABS: CALCIUM 7.5 mg/dL (8.5-10.1); CK-MB MASS 19.7 ng/mL (<0.5-3.6); MAGNESIUM 1.9 mg/dL (1.8-2.4); PHOSPHORUS* 5.1 mg/dL (2.5-4.9)
[2020-12-19 19:30] LABS: CREATININE 4.3 mg/dL (0.6-1.3)
[2020-12-19 19:33] LABS: TROPONIN-I LEVEL 3.31 ng/mL (<0.06)
--- NOTE | 2020-12-19 19:39 | NUR ---
INSULIN GTT DC'd THIS AM. VENT SUPP CONTD, FIO2 DOWN TO 40%, PEEP TO 5. EEG DONE TODAY. PLAN FOR BRAIN FLOW STUDY TOMMOROW PER DR PISANO. MTN UPDATED. PERSISTENT BLEEDING FROM ORAL CAVITY, INCREASING IN AMOUNT AT THE END OF SHIFT, PROVIDER NOTIFIED, ORDERS FOR EPINEPHRIINE PACKING RECEIVED. REPORT GIVEN TO BEATER AND PULPER FEEDER RN.
[2020-12-20] VITALS (38 sets, daily range): BP systolic 94–151; BP diastolic 53–84
[2020-12-20 05:17] LABS: ABSOLUTE LYMPHOCYTES 0.4 thou/uL (0.8-5.3); ABSOLUTE MONOCYTES 0.9 thou/uL (0.0-1.2); ABSOLUTE NEUTROPHILS 18.8 thou/uL (1.6-8.1); BASOPHILS 0.2 %; HEMATOCRIT 36.3 % (37.0-47.0); HEMOGLOBIN 11.3 gm/dL (12.0-15.0); LYMPHOCYTES 2.2 %; MCH 27.2 pg (26.0-34.0); MCHC 31.3 g/dL (28.0-37.0); MCV 87.1 fL (80.0-100.0); MONOCYTES 4.3 %; MPV 11.7 fl. (7.2-11.1); NUCLEATED RBCS 0 /100WBC; PLATELET COUNT* 74 thou/uL (150-400); POLYS 93.3 %; RBC 4.17 mil/uL (4.20-5.00); RDW-CV 15.5 % (10.5-14.5); WBC 20.1 thou/uL (4.0-11.0)
[2020-12-20 05:42] LABS: ALBUMIN 2.6 g/dL (3.4-5.0); CALCIUM 8.2 mg/dL (8.5-10.1); CREATININE 5.1 mg/dL (0.6-1.3); PHOSPHORUS* 4.9 mg/dL (2.5-4.9); POTASSIUM 4.6 mmol/L (3.5-5.1); TOTAL BILIRUBIN 0.7 mg/dL (<0.1-1.0); TOTAL PROTEIN 6.7 g/dL (6.4-8.2)
[2020-12-20 05:52] LABS: TROPONIN-I LEVEL 3.35 ng/mL (<0.06)
--- NOTE | 2020-12-20 07:19 | NUR ---
ASSUMED PATIENT CARE AT 1900. ASSESSMENTS COMPLETED CHARTED. CARDIAC MONITORING IN PLACE. BED LOCKED AND IN LOWEST POSITION. HOURLY ROUNDING IN PLACE FOR PATIENT SAFETY.
[2020-12-20 08:57] LABS: BE -4.2 mmol/L (-2 to +3); PO2 79.4 mmHg (75.0-100.0)
--- NOTE | 2020-12-20 09:02 | CON ---
[address] [address] CONSULTATION Name: MIHAI PAGE Room: [address] IN ..#: [id number] Admission: 12/17/20 Attend Phys: Loren Sales MD Discharge: Date of : 72 Report #: [id number] THIS REPORT FOR: cc: Abisai Odonnell MD, Bruce D. MD ~ Karla Rm MD DATE OF SERVICE: 12/18/2020 NEPHROLOGY CONSULTATION CONSULTING PHYSICIAN: Dr. Sales. REASON FOR NEPHROLOGY CONSULTATION: Acute kidney injury, status post cardiac arrest. REASON FOR ADMISSION: Cardiac and respiratory arrest. HISTORY OF PRESENT ILLNESS: The patient is a 50-year-old female who has history of hypothyroidism, obesity, obstructive sleep apnea and diabetes type 2, who initially developed progressive shortness of air at home, went out to the store to grab something, but became extremely short of breath, came back to her car and EMS had to bring her to the ER. En route and actually in the parking lot, she coded. She was transferred to the Emergency Room, resuscitated and coded 2 times after that, before return of spontaneous circulation about 50 minutes, had . She was immediately placed on hypothermia protocol. There was no STEMI noticed. Her creatinine was 1.6 when she came in, which has gone up to 2.2. She is nonoliguric. She has made about 1350 mL of urine since she has been here. She also has evidence of diffuse cerebral edema on her brain CT, evidence of bilateral pneumonia which looks more like pulmonary edema to me. She also has evidence of transaminitis, which has been getting better. Her troponin has gone up from 0.09 to 6.47. Cardiology is involved. Prognosis seems to be very poor. She also has evidence of significant respiratory as well as metabolic acidosis and has been started on a bicarbonate drip this morning. Lactate is at 3.1. White count has gone from 12,000 to 26,000. One of the blood culture bottles are growing gram-positive cocci. The patient is currently unresponsive with fixed dilated pupils, no reflex, on 1 vasopressor, Levophed. ALLERGIES: NITROFURANTOIN. REVIEW OF SYSTEMS: Due to unresponsiveness, I could not obtain. HOME MEDICATIONS: Include ibuprofen, quinapril, hydrochlorothiazide. She is on Zofran. She is on Tylenol with Codeine, [place] [address] CONSULTATION Name: MIHAI PAGE Vivien Room: [address] IN [facility]#: [id number] Admission: 12/17/20 Attend Phys: Loren Sales MD Discharge: Date of : 72 Report #: [id number] PAST MEDICAL AND SURGICAL HISTORY: Includes hypertension, morbid obesity, asthma, sleep apnea, fibroids removed, hysterectomy in 2015 and diabetes type 2. FAMILY HISTORY: Not able to obtain from the patient. SOCIAL HISTORY: According to the chart, she does not smoke and she does use alcohol, no recreational drug use. She lives at home. PHYSICAL EXAMINATION: VITAL SIGNS: Blood pressure currently is 153/99, temperature was 33 degrees Celsius, pulse rate was 63, respiratory rate was 14 and pulse ox is 97%, she is on 100% FiO2 on the ventilator. GENERAL: The patient is actually currently intubated. She is unresponsive with fixed dilated pupils. HEAD AND EYES: Fixed dilated pupils. Head is atraumatic. The patient is morbidly obese. EARS, NOSE, AND THROAT: Normal ears and nose. She has ET tube in place. NECK: Difficult to assess because of obesity. CHEST: Bilaterally diminished breath sounds. She is on ventilation, so mechanically ventilated breath sounds. CARDIOVASCULAR: S1, S2 normal, limited because of obesity. ABDOMEN: Soft. It is obese and it is nondistended. EXTREMITIES: There is no edema. NEUROLOGICAL FUNCTION: She is currently unresponsive. PSYCHIATRIC: Not able to assess right now. LABORATORY DATA: Her WBC is 26.2, hemoglobin is 14.5 and platelet count is 125. Sodium is 147, potassium is 3.2, CO2 is 27 and creatinine is 2.2, which is up from 1.8, which is up from 1.6 when she came in. Her pH is 7.2 and pCO2 of 46. CPK was 334 and troponin 6.47. D-dimer more than 35. PTT 62. Other labs were reviewed. IMAGING: Chest x-ray and head and chest CT were reviewed. ASSESSMENT: 1. Acute kidney injury, likely ischemic acute tubular necrosis in the setting of multiple cardiac arrests x 3. She was also taking NSAIDs and quinapril, hydrochlorothiazide at home, which also contributed to acute kidney injury. She is nonoliguric. Renal imaging will be checked. Her blood pressure was 66/27 when she came in and of course she coded 3 times. 2. Multiple cardiac arrests. Prognosis seems to be poor. She has evidence of anoxic brain injury, Cardiology is following. She is currently on hypothermia protocol. 3. Shock, likely cardiogenic at this point, ejection fraction is pending, [place] [address] CONSULTATION Name: MIHAI PAGE Room: [address] IN [facility]#: [id number] Admission: 12/17/20 Attend Phys: Loren Sales MD Discharge: Date of : 72 Report #: [id number] has gram-positive cocci growing from one of the blood culture bottles and is going to get vancomycin for that. 4. Combined respiratory metabolic acidosis with some metabolic alkalosis as well, has been started on a bicarbonate drip as per primary team. Most recent pH is 7.2. 5. Hypokalemia, likely because of hypothermia. 6. Hyponatremia, sodium is 147. 7. Transaminitis, likely due to decreased perfusion, enzymes are coming down. 8. Acute respiratory failure, intubated because of cardiorespiratory arrest, seems like pulmonary edema to me. 9. Diabetes type 2 history and she presented with diabetic ketoacidosis and treated with diabetic ketoacidosis protocol, on insulin drip currently. 10. Elevated TSH with normal free T4 with history of hypothyroidism. We will defer to primary team for management. 11. The patient has sleep apnea, we will defer to primary team. PLAN: 1. Replace potassium as per hypothermia protocol. 2. Sodium slightly high at 147, we will follow. 3. Agree with low dose bicarbonate drip. 4. Prognosis seems to be very poor and currently she is making urine, but if she stops making urine she will really not be a candidate for dialysis because of anoxic brain injury and completely unresponsive state. 5. Try to keep her MAP around 65-70. 6. I will check a renal ultrasound for completion purposes. 7. UA was reviewed, it had 3-10 rbc's per high powered field with 2+ protein. 8. Her baseline creatinine was 0.8 in 2019. We will continue to follow with you, I spent 38 minutes in the patient's critical care, this time was spent in chart review, placing orders and care coordination discussed with the patient's nurse in detail. <ELECTRONICALLY SIGNED> By: Karla Rm MD 12/20/20 0902 0957 1026Ashaun Rm MD /nt
--- NOTE | 2020-12-20 14:01 | NUR ---
ICU rounds: Neuro doing brain studies. MTN following
[2020-12-20 14:13] LABS: URINE CALCIUM < 3 mg/24 hr (47-462); URINE CALCIUM-mg/dl < 0.8 mg/dL (Not Estab.)
--- NOTE | 2020-12-20 14:57 | CON ---
[address] [address] CONSULTATION Name: CAMILOMIHAI FRANKS Vivien Room: [address] IN .R.#: [id number] Admission: 12/17/20 Attend Phys: Loren Sales MD Discharge: Date of : 72 Report #: [id number] THIS REPORT FOR: cc: Abisai Odonnell MD, Bruce D. MD ~ Thomas Stone MD DATE OF SERVICE: 12/19/2020 HISTORY OF PRESENT ILLNESS: This is a 50-year-old female patient who is unable to provide any history because she is intubated and she is on vent, and she is unresponsive. Her sister is here, she provided some history and I talked to the nurses and reviewed the patient's records and got more history from there. Neurological consultation is being requested to prognosticate the patient. The patient was found in cardiac arrest and she was resuscitated and since then she is unresponsive. According to nurses, she is not on any sedation. It looks like she has developed shortness of breath and was subsequently coded, she was put on hypothermia protocol. She has been warmed up since then. This patient's CT scan was done on admission and even that CT scan is showing pretty profound brain edema. She has been seen by multiple physicians when she is here that include Pulmonology and Nephrology. Those records were reviewed. It looks like this patient's ejection fraction was slightly decreased. REVIEW OF SYSTEMS: A 14-point review of system was carried out, the best it could be carried out. The patient is morbidly obese. She has a history of asthma and hypertension. She had hysterectomy in the past. She had fibroids removed in the past and now she had this cardiac arrest. This is all the history I can get. PAST MEDICAL HISTORY: Negative for any seizures or epilepsy as I understand. SOCIAL HISTORY: She has a sister. Apparently, she does not smoke. PHYSICAL EXAMINATION: The patient's examination is pretty limited. She is unresponsive. Nurses tell me she has not received any sedation. She is completely unresponsive. She does not respond to the pain or verbal stimuli. She has no reflexes. Her pupils are moderately enlarged and fixed. Her blood pressure is running about 111/70, pulse is 99, and temperature is 99.0. LABORATORY DATA: Indicate a white count of 20.6, GFR is only 19. Troponin is somewhat elevated. AST and ALT is slightly elevated. She did have a CT scan of the head and those films were reviewed and that does appear to be showing significant edema and I [place] [address] CONSULTATION Name: MIHAI PAGE Room: [address] IN .R.#: [id number] Admission: 12/17/20 Attend Phys: Loren Sales MD Discharge: Date of : 72 Report #: [id number] IMPRESSION: Severe hypoxic encephalopathy. The question is whether this patient meets the criteria for brain or not. We need further evaluation in that regard. Such massive edema at such an early course of the illness is unusual and is a bad prognostic sign, but the etiology of the cardiac arrest is not clear. Even difficult to exclude a central etiology in this patient fully and we may land up repeating a CT scan of the head in this patient. I discussed with the sister and the nurses. My plan is to get an EEG done first. That will be the simplest thing to do. If EEG does not show any activities, then I think we should start evaluating her for brain . We will do the clinical examination first thing in the morning, if the EEG is flat we will do it for brain evaluation and I will arrange blood flow study and may do a repeat CT at the same time to look for any subarachnoid hemorrhage. Thank you very much for this referral and we will follow this patient along with you. <ELECTRONICALLY SIGNED> By: Thomas Stone MD 12/20/20 1457 1329 1431Pmadiha Stone MD /nt
--- NOTE | 2020-12-20 18:28 | NUR ---
THIS RADAR TESTER ASSUMED CARE OF PT AT 0700 ASSESSMENT CHARTED. PT INTUBATED AND NONRESPONSIVE NO SEDATION GIVEN THROUGHOUT SHIFT PT HAS NO RESPONSE TO PAIN NO CORNEAL REFLUX, NO GAG REFLUX REPORTED TO DR PISANO HE ORDERED CT AND NUC MED SCAN FOR BRAIN BOTH RESULTS STATED BRAIN AND NO BLOOD FLOW TO BRAIN DR PISANO AND THIS RADAR TESTER PERFORMED THE OCULOVESTIBULAR AND OCOLOCEPHALIC RELFEX NO RESPONSE TO EITHER TEST DR PISANO STATED PT HAS NO BRAIN ACTIVITY APNEA TEST TO BE COMPLETED BY DR SHIN IN THE AM HE WAS NOT AVAIABLE TO COMPLETE TODAY AND DID NOT MEET CRITERIA FOR UNSTABILITY. MTN ON CASE AND SPOKE WITH THE FAMILY DUC (SISTER) SHE WAS ASKING WHAT TO DO NEXT THEY ARE WILLING TO DONATE ORGANS AND WOULD LIKE TO COME IN TOMORROW MOTHER AND SISTER SAY GOODGAMAE PERFORM APNEA TEST AND HAVE HOSPITALIST DECLARE TOD LABS WERE DRAWN FOR MTN AWAITING FOR TOMORROW
[2020-12-21] VITALS (17 sets, daily range): BP systolic 99–125; BP diastolic 61–80
[2020-12-21 04:18] LABS: ABSOLUTE BASOPHILS 0.1 thou/uL (0.0-0.2); ABSOLUTE LYMPHOCYTES 0.5 thou/uL (0.8-5.3); ABSOLUTE MONOCYTES 0.9 thou/uL (0.0-1.2); ABSOLUTE NEUTROPHILS 14.2 thou/uL (1.6-8.1); BASOPHILS 0.4 %; HEMATOCRIT 30.1 % (37.0-47.0); HEMOGLOBIN 9.5 gm/dL (12.0-15.0); LYMPHOCYTES 3.1 %; MCH 27.7 pg (26.0-34.0); MCHC 31.4 g/dL (28.0-37.0); MCV 88.3 fL (80.0-100.0); MONOCYTES 5.7 %; MPV 11.7 fl. (7.2-11.1); NUCLEATED RBCS 0 /100WBC; PLATELET COUNT* 56 thou/uL (150-400); POLYS 90.8 %; RBC 3.41 mil/uL (4.20-5.00); RDW-CV 15.8 % (10.5-14.5); WBC 15.7 thou/uL (4.0-11.0)
[2020-12-21 04:52] LABS: ALBUMIN 2.1 g/dL (3.4-5.0); CALCIUM 7.6 mg/dL (8.5-10.1); POTASSIUM 4.5 mmol/L (3.5-5.1); TOTAL BILIRUBIN 0.5 mg/dL (<0.1-1.0); TOTAL PROTEIN 5.9 g/dL (6.4-8.2)
[2020-12-21 04:54] LABS: CREATININE 6.5 mg/dL (0.6-1.3)
--- NOTE | 2020-12-21 07:39 | NUR ---
ASSUMED PATIENT CARE AT 1900. ASSESSMENTS COMPLETED CHARTED. CARDIAC MONITORING IN PLACE. HOURLY ROUNDING IN PLACE FOR PATIENT SAFETY. BED LOCKED AND IN LOWEST POSITION.
[2020-12-21 11:16] LABS: BE -4.1 mmol/L (-2 to +3); PCO2 40.6 mmHg (35.0-45.0); PO2 86.6 mmHg (75.0-100.0); pH 7.339 (7.340-7.450)
[2020-12-21 11:48] LABS: BE -6.4 mmol/L (-2 to +3); PO2 86.1 mmHg (75.0-100.0)
[2020-12-21 11:52] LABS: PCO2 78.7 mmHg (35.0-45.0); pH 7.107 (7.340-7.450)
--- NOTE | 2020-12-21 13:12 | NUR ---
this writer editor assumed care of pt at [address] alpa tejeda this writer editor and rt at bedside to perform apnea test abg drawn before and 10 mins after apnea test began no repsonse or breathes during test declared brain at [address] yuen and dr tejeda permission from family for organ donation received at 1230 by mtn pt is being discharged from our care and admitted under mtn family said there goodbyes and is letting mtn take over
== END 2020-12-21 11:55 | DRG 871 ==
LOC: M.ERS 14:46 → M.ICU 17:09 → M.TBA-ER 17:09 → M.ICU 18:12
PROVIDERS: Emergency Medicine Emergency Medical Services; Internal Medicine; Internal Medicine Critical Care Medicine; Pediatrics; ADMIT Internal Medicine; ATTEND Internal Medicine
PROC: 0BH17EZ Insertion of Endotracheal Airway into Trachea, Via Natural or Artificial Opening (ICD-10-PCS; principal; 2020-12-17)
PROC: 5A1945Z Respiratory Ventilation, 24-96 Consecutive Hours (ICD-10-PCS; principal; 2020-12-17)
PROC: 4A133J1 Monitoring of Arterial Pulse, Peripheral, Percutaneous Approach (ICD-10-PCS; 2020-12-18)
PROC: 4A133B1 Monitoring of Arterial Pressure, Peripheral, Percutaneous Approach (ICD-10-PCS; 2020-12-18)
PROC: 03HY32Z Insertion of Monitoring Device into Upper Artery, Percutaneous Approach (ICD-10-PCS; 2020-12-18)
DX: A41.81 Sepsis due to Enterococcus (principal); J96.01 Acute respiratory failure with hypoxia; J96.02 Acute respiratory failure with hypercapnia; E11.10 Type 2 diabetes mellitus with ketoacidosis without coma; J81.0 Acute pulmonary edema; I50.21 Acute systolic (congestive) heart failure; I21.A1 Myocardial infarction type 2; E87.0 Hyperosmolality and hypernatremia; E87.1 Hypo-osmolality and hyponatremia; Z68.44 Body mass index [BMI] 60.0-69.9, adult; G93.1 Anoxic brain damage, not elsewhere classified; R57.9 Shock, unspecified; E87.6 Hypokalemia; E66.01 Morbid (severe) obesity due to excess calories; G47.33 Obstructive sleep apnea (adult) (pediatric); E03.9 Hypothyroidism, unspecified; D69.6 Thrombocytopenia, unspecified; I11.0 Hypertensive heart disease with heart failure; I46.9 Cardiac arrest, cause unspecified; J45.909 Unspecified asthma, uncomplicated; Z20.822 Contact with and (suspected) exposure to COVID-19; Z90.710 Acquired absence of both cervix and uterus; Z79.899 Other long term (current) drug therapy; Z88.8 Allergy status to other drugs, medicaments and biological substances

== ENCOUNTER 2020-12-21 11:55 | Observation (INO) | payer OTHER ==
--- NOTE | ~2020-12-21 | H ---
[address] [address] HISTORY AND PHYSICAL Name: CAMILO MELGAR STEPHANIE A Room: [address] Claudia#: [id number] Admission: 12/21/20 Attend Phys: [facility] Discharge: 12/23/20 Date of : 72 Report #: [id number] THIS REPORT FOR: cc: Abisai Odonnell MD, Bruce D. MD ~ [facility],Medical Records Staff [facility] account. Please refer back to the Inpatient Acute account for History and Physical details. By: [id number] Records Staff [facility] /KEIRA
--- NOTE | ~2020-12-21 | OP ---
[address] [address] OPERATIVE REPORT Name: CAMILO MELGAR STEPHANIE A Room: [address] [place]ia#: [id number] Admission: 12/21/20 Attend Phys: [facility] Discharge: 12/23/20 Date of : 72 Report #: [id number] THIS REPORT FOR: cc: Abisai Odonnell MD, Bruce D. MD ~ [facility],Medical Records Staff [facility] Case. By: [id number] Records Staff JELANI /KEIRA
[2020-12-21 14:44] LABS: PCO2 41.8 mmHg (35.0-45.0); pH 7.333 (7.340-7.450)
[2020-12-21 14:45] LABS: PO2 307.5 mmHg (75.0-100.0)
[2020-12-21 15:16] LABS: HEMATOCRIT 32.1 % (37.0-47.0); MCH 27.4 pg (26.0-34.0); MCHC 31.1 g/dL (28.0-37.0); MCV 88.2 fL (80.0-100.0); MPV 11.2 fl. (7.2-11.1); NUCLEATED RBCS 0 /100WBC; PLATELET COUNT* 63 thou/uL (150-400); RBC 3.65 mil/uL (4.20-5.00); RDW-CV 15.9 % (10.5-14.5); WBC 16.8 thou/uL (4.0-11.0)
[2020-12-21 15:53] LABS: ALBUMIN 2.4 g/dL (3.4-5.0); CALCIUM 7.5 mg/dL (8.5-10.1); CK-MB MASS 20.1 ng/mL (<0.5-3.6); CREATININE 7.2 mg/dL (0.6-1.3); DIRECT BILIRUBIN 0.1 mg/dL (<0.1-0.3); MAGNESIUM 2.2 mg/dL (1.8-2.4); PHOSPHORUS* 7.3 mg/dL (2.5-4.9); POTASSIUM 5.3 mmol/L (3.5-5.1); TOTAL BILIRUBIN 0.5 mg/dL (<0.1-1.0); TOTAL PROTEIN 6.5 g/dL (6.4-8.2)
[2020-12-21 15:55] LABS: TROPONIN-I LEVEL 3.05 ng/mL (<0.06)
[2020-12-21 16:04] LABS: ABSOLUTE LYMPHOCYTES 0.8 thou/uL (0.8-5.3); ABSOLUTE MONOCYTES 0.7 thou/uL (0.0-1.2); ABSOLUTE NEUTROPHILS 15.3 thou/uL (1.6-8.1); LARGE PLATELETS OCCASIONAL; PLATELET ESTIMATE DECREASED
[2020-12-21 18:26] LABS: URINE BILIRUBIN NEGATIVE (Negative); URINE BLOOD 3+ (Negative); URINE CLARITY CLOUDY; URINE COLOR YELLOW; URINE GLUCOSE-RANDOM NEGATIVE (Negative); URINE KETONES NEGATIVE (Negative); URINE LEUKOCYTES-REFLEX TRACE (Negative); URINE NITRITE-REFLEX NEGATIVE (Negative); URINE PROTEIN 2+ (Negative); URINE UROBILINOGEN 0.2 E.U./dl (0.2-1.0)
[2020-12-21 18:32] LABS: SQUAMOUS >10 Many /LPF (0-3)
[2020-12-21 18:33] LABS: URINE WBC-REFLEX 0-5 Rare /HPF (0-5); YEAST-REFLEX Present (None Seen)
[2020-12-21 18:36] LABS: BACTERIA-REFLEX None Seen /HPF (None Seen); CASTS None Seen /LPF (None Seen); CRYSTALS None Seen /LPF (None Seen); MUCUS None Seen strn/LPF (None Seen)
[2020-12-21 20:27] LABS: ABSOLUTE LYMPHOCYTES 0.3 thou/uL (0.8-5.3); ABSOLUTE MONOCYTES 0.3 thou/uL (0.0-1.2); ABSOLUTE NEUTROPHILS 14.3 thou/uL (1.6-8.1); BASOPHILS 0.1 %; HEMATOCRIT 31.4 % (37.0-47.0); HEMOGLOBIN 9.8 gm/dL (12.0-15.0); LYMPHOCYTES 2.2 %; MCH 27.7 pg (26.0-34.0); MCHC 31.1 g/dL (28.0-37.0); MCV 88.9 fL (80.0-100.0); MPV 11.3 fl. (7.2-11.1); NUCLEATED RBCS 0 /100WBC; PLATELET COUNT* 60 thou/uL (150-400); POLYS 95.7 %; RBC 3.53 mil/uL (4.20-5.00); WBC 14.9 thou/uL (4.0-11.0)
[2020-12-21 20:44] LABS: BE -4.3 mmol/L (-2 to +3); PCO2 48.7 mmHg (35.0-45.0)
[2020-12-21 20:46] LABS: pH 7.281 (7.340-7.450)
[2020-12-21 21:35] LABS: ALBUMIN 2.2 g/dL (3.4-5.0); CALCIUM 7.1 mg/dL (8.5-10.1); CREATININE 7.4 mg/dL (0.6-1.3); DIRECT BILIRUBIN 0.1 mg/dL (<0.1-0.3); MAGNESIUM 2.4 mg/dL (1.8-2.4); PHOSPHORUS* 8.2 mg/dL (2.5-4.9); POTASSIUM 4.8 mmol/L (3.5-5.1); TOTAL BILIRUBIN 0.4 mg/dL (<0.1-1.0); TOTAL PROTEIN 6.3 g/dL (6.4-8.2)
[2020-12-21 21:36] LABS: TROPONIN-I LEVEL 2.6 ng/mL (<0.06)
[2020-12-21 22:04] LABS: APTT 24.2 Seconds (25.0-31.3); PROTIME 10.7 Seconds (9.20-11.50)
[2020-12-22 02:06] LABS: GLYCOHEMOGLOBIN (HGB A1C) 11.6 % (4.8-5.6)
[2020-12-22 02:26] LABS: ABSOLUTE LYMPHOCYTES 0.4 thou/uL (0.8-5.3); ABSOLUTE MONOCYTES 0.4 thou/uL (0.0-1.2); ABSOLUTE NEUTROPHILS 12.7 thou/uL (1.6-8.1); BASOPHILS 0.1 %; HEMATOCRIT 29.8 % (37.0-47.0); HEMOGLOBIN 9.4 gm/dL (12.0-15.0); LYMPHOCYTES 3.3 %; MCH 27.6 pg (26.0-34.0); MCHC 31.5 g/dL (28.0-37.0); MCV 87.8 fL (80.0-100.0); MONOCYTES 3.1 %; MPV 11.2 fl. (7.2-11.1); NUCLEATED RBCS 0 /100WBC; PLATELET COUNT* 60 thou/uL (150-400); POLYS 93.5 %; RDW-CV 15.9 % (10.5-14.5); WBC 13.6 thou/uL (4.0-11.0)
[2020-12-22 02:40] LABS: BE -4.5 mmol/L (-2 to +3); PCO2 39.2 mmHg (35.0-45.0); pH 7.343 (7.340-7.450)
[2020-12-22 02:41] LABS: PROTIME 10.9 Seconds (9.20-11.50)
[2020-12-22 02:42] LABS: PO2 308.4 mmHg (75.0-100.0)
[2020-12-22 02:52] LABS: ALBUMIN 2.2 g/dL (3.4-5.0); CK-MB MASS 18.8 ng/mL (<0.5-3.6); CREATININE 7.2 mg/dL (0.6-1.3); DIRECT BILIRUBIN 0.1 mg/dL (<0.1-0.3); MAGNESIUM 2.3 mg/dL (1.8-2.4); PHOSPHORUS* 6.8 mg/dL (2.5-4.9); POTASSIUM 4.6 mmol/L (3.5-5.1); TOTAL BILIRUBIN 0.4 mg/dL (<0.1-1.0); TOTAL PROTEIN 6.3 g/dL (6.4-8.2)
[2020-12-22 02:56] LABS: TROPONIN-I LEVEL 2.37 ng/mL (<0.06)
[2020-12-22 03:03] LABS: APTT 22.1 Seconds (25.0-31.3)
[2020-12-22 08:25] LABS: BE -5.5 mmol/L (-2 to +3); PCO2 38.5 mmHg (35.0-45.0); pH 7.332 (7.340-7.450)
[2020-12-22 08:28] LABS: PO2 139.7 mmHg (75.0-100.0)
[2020-12-22 09:23] LABS: ABSOLUTE LYMPHOCYTES 0.4 thou/uL (0.8-5.3); ABSOLUTE MONOCYTES 0.9 thou/uL (0.0-1.2); ABSOLUTE NEUTROPHILS 13.5 thou/uL (1.6-8.1); BASOPHILS 0.1 %; HEMATOCRIT 29.4 % (37.0-47.0); HEMOGLOBIN 9.2 gm/dL (12.0-15.0); LYMPHOCYTES 2.9 %; MCH 27.5 pg (26.0-34.0); MCHC 31.2 g/dL (28.0-37.0); MONOCYTES 6.1 %; MPV 11.6 fl. (7.2-11.1); NUCLEATED RBCS 0 /100WBC; PLATELET COUNT* 63 thou/uL (150-400); POLYS 90.9 %; RBC 3.34 mil/uL (4.20-5.00); RDW-CV 15.9 % (10.5-14.5); WBC 14.9 thou/uL (4.0-11.0)
[2020-12-22 09:45] LABS: ALBUMIN 2.2 g/dL (3.4-5.0); CALCIUM 7.5 mg/dL (8.5-10.1); CK-MB MASS 19.3 ng/mL (<0.5-3.6); CREATININE 7.3 mg/dL (0.6-1.3); DIRECT BILIRUBIN 0.1 mg/dL (<0.1-0.3); MAGNESIUM 2.3 mg/dL (1.8-2.4); PHOSPHORUS* 7.9 mg/dL (2.5-4.9); POTASSIUM 5.3 mmol/L (3.5-5.1); TOTAL BILIRUBIN 0.5 mg/dL (<0.1-1.0); TOTAL PROTEIN 6.4 g/dL (6.4-8.2)
[2020-12-22 09:46] LABS: TROPONIN-I LEVEL 1.98 ng/mL (<0.06)
[2020-12-22 09:54] LABS: APTT 25.1 Seconds (25.0-31.3); PROTIME 10.9 Seconds (9.20-11.50)
[2020-12-22 14:12] LABS: BE -4.6 mmol/L (-2 to +3); PCO2 38.7 mmHg (35.0-45.0); pH 7.345 (7.340-7.450)
[2020-12-22 14:16] LABS: PO2 145.2 mmHg (75.0-100.0)
[2020-12-22 15:24] LABS: ABSOLUTE BASOPHILS 0.1 thou/uL (0.0-0.2); ABSOLUTE LYMPHOCYTES 0.6 thou/uL (0.8-5.3); ABSOLUTE MONOCYTES 0.6 thou/uL (0.0-1.2); ABSOLUTE NEUTROPHILS 14.1 thou/uL (1.6-8.1); BASOPHILS 0.5 %; EOSINOPHILS 0.1 %; HEMOGLOBIN 8.4 gm/dL (12.0-15.0); MCH 27.2 pg (26.0-34.0); MCV 87.8 fL (80.0-100.0); MONOCYTES 3.9 %; MPV 11.5 fl. (7.2-11.1); NUCLEATED RBCS 0 /100WBC; PLATELET COUNT* 75 thou/uL (150-400); POLYS 91.5 %; RBC 3.08 mil/uL (4.20-5.00); RDW-CV 15.9 % (10.5-14.5); WBC 15.4 thou/uL (4.0-11.0)
[2020-12-22 15:33] LABS: APTT 24.3 Seconds (25.0-31.3); PROTIME 10.9 Seconds (9.20-11.50)
[2020-12-22 15:48] LABS: CALCIUM 7.3 mg/dL (8.5-10.1); CK-MB MASS 18.3 ng/mL (<0.5-3.6); CREATININE 7.7 mg/dL (0.6-1.3); DIRECT BILIRUBIN 0.1 mg/dL (<0.1-0.3); MAGNESIUM 2.4 mg/dL (1.8-2.4); PHOSPHORUS* 8.6 mg/dL (2.5-4.9); POTASSIUM 4.7 mmol/L (3.5-5.1); TOTAL BILIRUBIN 0.4 mg/dL (<0.1-1.0)
[2020-12-22 16:09] LABS: TROPONIN-I LEVEL 1.75 ng/mL (<0.06)
[2020-12-22 20:12] LABS: PCO2 35.5 mmHg (35.0-45.0); pH 7.328 (7.340-7.450)
[2020-12-22 20:13] LABS: PO2 135.5 mmHg (75.0-100.0)
[2020-12-22 20:35] LABS: ABSOLUTE LYMPHOCYTES 0.5 thou/uL (0.8-5.3); ABSOLUTE NEUTROPHILS 12.4 thou/uL (1.6-8.1); BASOPHILS 0.1 %; HEMATOCRIT 26.3 % (37.0-47.0); HEMOGLOBIN 8.2 gm/dL (12.0-15.0); LYMPHOCYTES 3.9 %; MCH 27.4 pg (26.0-34.0); MCHC 31.3 g/dL (28.0-37.0); MCV 87.7 fL (80.0-100.0); MONOCYTES 7.2 %; MPV 11.3 fl. (7.2-11.1); NUCLEATED RBCS 0 /100WBC; PLATELET COUNT* 64 thou/uL (150-400); POLYS 88.8 %; RDW-CV 15.5 % (10.5-14.5)
[2020-12-22 20:50] LABS: APTT 23.9 Seconds (25.0-31.3)
[2020-12-22 21:08] LABS: CALCIUM 7.1 mg/dL (8.5-10.1); CK-MB MASS 16.5 ng/mL (<0.5-3.6); CREATININE 7.8 mg/dL (0.6-1.3); DIRECT BILIRUBIN 0.1 mg/dL (<0.1-0.3); MAGNESIUM 2.5 mg/dL (1.8-2.4); PHOSPHORUS* 9.4 mg/dL (2.5-4.9); POTASSIUM 5.1 mmol/L (3.5-5.1); TOTAL BILIRUBIN 0.4 mg/dL (<0.1-1.0); TOTAL PROTEIN 5.9 g/dL (6.4-8.2)
[2020-12-22 21:29] LABS: TROPONIN-I LEVEL 1.43 ng/mL (<0.06)
[2020-12-22 23:13] LABS: URINE BILIRUBIN NEGATIVE (Negative); URINE BLOOD 3+ (Negative); URINE CLARITY CLEAR; URINE COLOR YELLOW; URINE GLUCOSE-RANDOM TRACE (Negative); URINE KETONES NEGATIVE (Negative); URINE LEUKOCYTES TRACE (Negative); URINE NITRITE NEGATIVE (Negative); URINE PROTEIN 1+ (Negative); URINE SPECIFIC GRAVITY 1.015 (1.005-1.030); URINE UROBILINOGEN 0.2 E.U./dl (0.2-1.0)
[2020-12-23 00:06] LABS: SQUAMOUS >10 Many /LPF (0-3)
[2020-12-23 00:07] LABS: COARSE GRANULAR CASTS 4-10 Moderate /LPF (None Seen); HYALINE CASTS 0-3 Few /LPF (None Seen); URINE WBC 6-15 Few /HPF (0-5)
[2020-12-23 00:08] LABS: CRYSTALS None Seen /LPF (None Seen); URINE RBC >20 Many /HPF (0-2); YEAST Present (None Seen)
--- NOTE | 2020-12-28 17:06 | PATH ---
[address] [address] PATHOLOGY RPT PROCEDURE Name: CAMILO MELGAR STEPHANIE Vivien Room: [address]#: [id number] Admission: 12/21/20 Date of : 72 Discharge: 12/23/20 Report #: [id number] Path Case #: [id number] [facility] Accession Number: [id number] . 01 Material submitted: . PART A: liver - LIVER BIOPSY PART B: liver - LIVER WEDGE BIOPSY . 02 Frozen section diagnosis: . FROZEN SECTION DIAGNOSIS: FSA1. Liver, needle biopsy: - Macrovesicular steatosis - approximately 30%. - Negative for cellular infiltrates of active inflammation. - Negative for cirrhosis. - Negative for bridging fibrosis. - Focal zone 3 hepatocyte dropout; negative for bridging necrosis. - Zone 3 sinusoidal dilatation. . The results are conveyed to Jaylyn, nurse for [facility], and the [facility] work sheet is completed and placed in the patient's chart. (MLK:elvira; 12/25/2020) . . INTRAOPERATIVE CONSULTATION WITH FROZEN SECTION: (Dr. Aidan Vieira) . B. Liver, "liver wedge biopsy": - 10-20% steatosis focal mild chronic inflammation with sinusoidal dilatation. . Findings reported to the transplant team and a written report was given. (ANKITA:cory; 12/25/2020) . FROZEN SECTION GROSS DESCRIPTION: A. Received fresh are three needle cores of liver tissue, each measuring less than 0.1 cm in diameter and ranging from 0.7 to 0.9 cm in length. The tissue is frozen and submitted in its entirety in cassette A1. (MLK:pit; 12/25/2020) . . FROZEN SECTION GROSS DESCRIPTION: B. Received fresh, labeled with patient name - "Liver wedge biopsy". Specimen frozen and submitted in cassette labeled B1. (SHA:mml; 12/25/2020) . Frozen section performed at [facility], [address] [place] [address]. THEE/QTP . [address] [address] PATHOLOGY RPT PROCEDURE Name: CAMILO MELGAR STEPHANIE A Room: [address]#: [id number] Admission: 12/21/20 Date of : 72 Discharge: 12/23/20 Report #: [id number] Path Case #: [id number] Diagnosis: A. Liver, needle biopsy: - Steatosis approximately 20%. - Mild spotty lobular necroinflammatory activity; negative for bridging fibrosis. - Zone 3 sinusoidal dilatation, without significant congestion. - Negative for bridging fibrosis or cirrhosis. . B. Liver, subcapsular wedge biopsy: - Steatosis approximately 20-30%. - Mild to moderate spotty lobular necroinflammatory activity; negative for bridging necrosis. - Zone 3 sinusoidal dilatation, without significant congestion. - Negative for bridging fibrosis or cirrhosis. . (JOHNK:leon; 12/27/2020) MBR 12/28/2020 1640 Local . 03 Electronically signed: . Elizabeth Sanchez MD, Pathologist NPI- [id number] . 01 Gross description: . A AND B. SEE FROZEN SECTION FOR GROSS DESCRIPTION /QTP 12/25/2020 1617 Local . 03 Pathologist provided ICD-10: K76.0, K76.89 . 03 CPT . 905585, 804596, 977149, 899969 Specimen Comment: A courtesy copy of this report has been sent to [phone] Specimen Comment: Report sent to Performed at: [address], [place], [place] [id number] MD Aidan Vieira MD Phone: [phone] Performed at: [facility] [address], [place], [place] [id number] MD Vu Degroot MD Phone: [phone] Performed at: [facility] [address] [place], [place] [id number] MD Valorie Berry MD Phone: [phone]
== END 2020-12-23 03:30 ==
LOC: M.ICU 11:55
DX: Z00.5 Encounter for examination of potential donor of organ and tissue (principal)